=== PATIENT | female | born 1985 | race Caucasian/White ===

== ENCOUNTER 2017-08-01 07:47 | Emergency (ER) | payer BC | END 2017-08-01 08:51 | disposition home or self-care (01) | LOC: ER1 07:47 | DX: T26.11XA Burn of cornea and conjunctival sac, right eye, initial encounter (principal); F17.200 Nicotine dependence, unspecified, uncomplicated; X12.XXXA Contact with other hot fluids, initial encounter; Y92.009 Unspecified place in unspecified non-institutional (private) residence as the place of occurrence of the external cause | CPT/HCPCS: 99283 ==